=== PATIENT | male | born 2000 | race Caucasian/White ===

== ENCOUNTER 2021-08-19 12:11 | Inpatient (IN) ==
[2021-08-19] MEDS ORDERED: Ibuprofen 400 MG TABLET PO PRN (13:47)
[2021-08-19] MEDS ORDERED: *HR* LORazepam 1 MG TABLET PO PRN (13:47)
[2021-08-19] MEDS ORDERED: *HR* LORazepam 2 MG/ML VIAL IM PRN (13:47)
[2021-08-19] MEDS ORDERED: haloperidoL 5 MG TABLET PO PRN (13:47)
[2021-08-19] MEDS ORDERED: Haloperidol Lactate 5 MG/ML VIAL IM PRN (13:47)
[2021-08-19] MEDS ORDERED: Nicotine 2 MG GUM BC PRN (13:47)
[2021-08-19] MEDS ORDERED: Mag Hydrox/Al Hydrox/Simeth 30 ML UDC PO PRN (13:47)
[2021-08-19] MEDS ORDERED: MOM Conc 10 ML UD.LIQ PO PRN (13:47)
[2021-08-19 15:05] LABS: Influenza A PCR Negative (Negative); Influenza B PCR Negative (Negative); Resp. Syncytial Virus PCR Negative (Negative)
[2021-08-19 15:08] LABS: SARS-CoV-2 by PCR (In House) Negative (Negative)
[2021-08-19] MEDS ORDERED: OLANZapine 5 MG TAB.RAPDIS PO SCH (21:00)
[2021-08-19] MEDS: hydrOXYzine pamoate 25 MG CAPSULE PO PRN (21:07)
[2021-08-20] MEDS: Multivit/Ca/Min/Fe/FA 1 TAB TABLET PO SCH (11:05)
[2021-08-20] MEDS: Hydrocortisone 1% OINT 28 GM TUBE TP PRN (13:24)
[2021-08-20] MEDS: Lurasidone 20 MG TABLET PO SCH (16:07)
[2021-08-20] MEDS: traZODone 50 MG TABLET PO PRN (22:07)
[2021-08-21] MEDS: hydrOXYzine pamoate 25 MG CAPSULE PO PRN ×2 (00:09→21:29)
[2021-08-21] MEDS: Multivit/Ca/Min/Fe/FA 1 TAB TABLET PO SCH (09:25)
[2021-08-21] MEDS: Lurasidone 20 MG TABLET PO SCH (17:36)
[2021-08-21] MEDS: traZODone 50 MG TABLET PO PRN (21:29)
[2021-08-21] MEDS: Hydrocortisone 1% OINT 28 GM TUBE TP PRN (21:29)
[2021-08-22] MEDS: Multivit/Ca/Min/Fe/FA 1 TAB TABLET PO SCH (08:41)
[2021-08-22] MEDS: Melatonin 3 MG TABLET PO PRN (21:03)
[2021-08-22] MEDS: hydrOXYzine pamoate 25 MG CAPSULE PO PRN (21:03)
[2021-08-22] MEDS: Divalproex (24 HR) 500 MG TABLET PO SCH ×2 (21:04)
[2021-08-23] MEDS: Multivit/Ca/Min/Fe/FA 1 TAB TABLET PO SCH (09:02)
[2021-08-23] MEDS: Divalproex (24 HR) 500 MG TABLET PO SCH ×2 (22:08)
[2021-08-23] MEDS: hydrOXYzine pamoate 25 MG CAPSULE PO PRN (22:10)
[2021-08-23] MEDS: Melatonin 3 MG TABLET PO PRN (22:11)
[2021-08-24 08:34] LABS: Basophils # 0.1 K/mcL (0.0-0.2); Basophils % 1.2 %; Eosinophils # 0.4 K/mcL (0.0-0.6); Eosinophils % 5.8 %; Hematocrit 47.6 % (37.5-50.1); Hemoglobin 15.8 g/dL (12.9-16.9); Immature Granulocytes % 0.3 % (0-4); Lymphocytes # 2.3 K/mcL (0.6-4.6); Lymphocytes % 30.8 %; Mean Corpuscular HGB Conc 33.2 g/dL (31.6-35.5); Mean Corpuscular Hemoglobin 30.3 pg (28.0-33.3); Mean Corpuscular Volume 91.2 fL (83.0-100.0); Mean Platelet Volume 11.6 fL (9.4-12.4); Monocytes # 0.6 K/mcL (0.0-1.3); Monocytes % 8.3 %; Platelet Count 235 K/mcL (140-400); Red Blood Count 5.22 M/mcL (4.19-5.50); Red Cell Distribution Width 13.2 % (11.5-14.5); Segmented Neutrophils % 53.6 %; White Blood Count 7.4 K/mcL (4.3-11.1)
[2021-08-24] MEDS: Multivit/Ca/Min/Fe/FA 1 TAB TABLET PO SCH (08:48)
[2021-08-24 08:54] LABS: Bilirubin,Urine Negative (Negative); Blood,Urine Negative (Negative); Clarity,Urine Clear (Clear); Color,Urine Colorless (Yellow); Glucose,Urine (UA) Normal (Normal); Ketones,Urine Negative (Negative); Leukocyte Esterase,Urine Negative (Negative); Nitrite,Urine Negative (Negative); Protein,Urine Negative (Neg-Trace); Specific Gravity,Urine 1.015 (1.010-1.025); Urobilinogen,Urine Normal (Normal)
[2021-08-24 09:10] VITALS: BP 131/73; PULSE 53; TEMP 97.6; O2SAT 100
[2021-08-24 11:06] LABS: Alanine Aminotransferase 15 Units/L (7-52); Albumin 4.3 g/dL (3.5-5.7); Albumin/Globulin Ratio 1.7 (1.1-2.2); Alkaline Phosphatase 64 Units/L (34-104); Aspartate Amino Transferase 9 Units/L (13-39); BUN/Creatinine Ratio 18 (6-26); Bilirubin,Total 0.5 mg/dL (0.3-1.0); Blood Urea Nitrogen 14 mg/dL (6-20); Calcium 9.3 mg/dL (8.6-10.3); Carbon Dioxide 31 mEq/L (23-29); Chloride 101 mEq/L (98-107); Globulin 2.5 g/dL (2.4-3.5); Glucose 76 mg/dL (70-105); Osmolality,Calculated 283 (280-300); Potassium 4.1 mEq/L (3.5-5.1); Sodium 137 mEq/L (136-145); Total Protein 6.8 g/dL (6.4-8.9); eGFR For African Americans > 60 (> 60); eGFR For Non-African Americans > 60 (> 60)
[2021-08-24 11:19] LABS: Thyroid Stimulating Hormone 3.986 mcIU/mL (0.340-5.600)
[2021-08-24 15:04] LABS: Valproate 100 mcg/mL (50-100)
== END 2021-08-24 16:45 | disposition home or self-care (01) | DRG 753 ==
LOC: EMEROOARM 12:11 → 1ANU 15:45 → SUATTDRO 15:45 → 1ANU 18:51
PROVIDERS: ADMIT Psychiatry & Neurology Psychiatry; ATTEND Psychiatry & Neurology Forensic Psychiatry

== ENCOUNTER 2021-09-08 04:09 | Inpatient (IN) ==
[2021-09-08 06:02] LABS: Bilirubin,Urine Negative (Negative); Blood,Urine Negative (Negative); Clarity,Urine Clear (Clear); Color,Urine Yellow (Yellow); Glucose,Urine (UA) Normal (Normal); Ketones,Urine 20 mg/dL (Negative); Leukocyte Esterase,Urine Negative (Negative); Nitrite,Urine Negative (Negative); Protein,Urine Trace mg/dL (Neg-Trace)
[2021-09-08 07:02] LABS: Amphetamine Screen,Urine Negative ng/mL (Cutoff=1000); Barbiturate Screen,Urine Negative ng/mL (Cutoff=200)
[2021-09-08 07:04] LABS: Benzodiazepines Screen,Urine Negative ng/mL (Cutoff=300); Cannabinoid Screen,Urine Negative ng/mL (Cutoff = 50); Cocaine Screen,Urine Negative ng/mL (Cutoff= 300); Opiate Screen,Urine Negative ng/mL (Cutoff=300); Phencyclidine Screen,Urine Negative ng/mL (Cutoff=25)
[2021-09-08 13:49] LABS: Influenza A PCR Negative (Negative); Influenza B PCR Negative (Negative); Resp. Syncytial Virus PCR Negative (Negative)
[2021-09-08 14:20] LABS: SARS-CoV-2 by PCR (In House) Negative (Negative)
[2021-09-08] MEDS ORDERED: MOM Conc 10 ML UD.LIQ PO PRN (14:50)
[2021-09-08] MEDS ORDERED: Mag Hydrox/Al Hydrox/Simeth 30 ML UDC PO PRN (14:50)
[2021-09-08] MEDS ORDERED: *HR* LORazepam 1 MG TABLET PO PRN (14:50)
[2021-09-08] MEDS ORDERED: *HR* LORazepam 2 MG/ML VIAL IM PRN (14:50)
[2021-09-08] MEDS ORDERED: Acetaminophen 325 MG TABLET PO PRN (14:50)
[2021-09-08] MEDS ORDERED: chlorproMAZINE 25 MG TABLET PO PRN (15:01)
[2021-09-08] MEDS ORDERED: Divalproex (24 HR) 500 MG TABLET PO SCH (21:00)
[2021-09-08] MEDS: hydrOXYzine pamoate 25 MG CAPSULE PO PRN (21:58)
[2021-09-08] MEDS: traZODone 50 MG TABLET PO PRN ×2 (21:58→23:39)
[2021-09-09] MEDS ORDERED: Divalproex (24 HR) 500 MG TABLET PO SCH (21:00)
[2021-09-09] MEDS ORDERED: ARIPiprazole 5 MG TABLET PO SCH (21:00)
[2021-09-09] MEDS: Divalproex (24 HR) 250 MG TABLET PO SCH (21:29)
[2021-09-09] MEDS: traZODone 50 MG TABLET PO PRN (21:29)
[2021-09-10] MEDS: traZODone 50 MG TABLET PO PRN ×2 (01:00→21:40)
[2021-09-10] MEDS: Melatonin 3 MG TABLET PO SCH (21:40)
[2021-09-10] MEDS: ARIPiprazole 10 MG TABLET PO SCH (21:40)
[2021-09-10] MEDS: Divalproex (24 HR) 250 MG TABLET PO SCH (21:40)
[2021-09-11] MEDS: ARIPiprazole 10 MG TABLET PO SCH (21:17)
[2021-09-11] MEDS: Melatonin 3 MG TABLET PO SCH (21:17)
[2021-09-11] MEDS: Divalproex (24 HR) 250 MG TABLET PO SCH (21:17)
[2021-09-11] MEDS: traZODone 50 MG TABLET PO PRN (21:17)
[2021-09-12] MEDS: hydrOXYzine pamoate 25 MG CAPSULE PO PRN ×2 (01:59→16:24)
[2021-09-12] MEDS ORDERED: ARIPiprazole 400 MG SUSER.SYR IM SCH (10:15)
[2021-09-12] MEDS: ARIPiprazole 10 MG TABLET PO SCH (21:20)
[2021-09-12] MEDS: Divalproex (24 HR) 250 MG TABLET PO SCH (21:21)
[2021-09-12] MEDS: traZODone 50 MG TABLET PO PRN (21:21)
[2021-09-12] MEDS: Melatonin 3 MG TABLET PO SCH (21:21)
[2021-09-13] MEDS: hydrOXYzine pamoate 25 MG CAPSULE PO PRN ×2 (06:41→13:15)
[2021-09-13 09:32] VITALS: BP 112/71; PULSE 84; TEMP 97.2; O2SAT 99
[2021-09-13] MEDS ORDERED: Benzocaine 20% 12 APPL GEL..GRAM. TP PRN (11:59)
== END 2021-09-13 16:40 | disposition home or self-care (01) | DRG 753 ==
LOC: EMEROOARM 04:09 → SUATTDRO 14:42 → 1ANU 14:42
PROVIDERS: ADMIT Psychiatry & Neurology Psychiatry; ATTEND Psychiatry & Neurology Forensic Psychiatry

== ENCOUNTER 2021-09-21 07:06 | Inpatient (IN) ==
[2021-09-21 10:33] LABS: Influenza A PCR Negative (Negative); Influenza B PCR Negative (Negative); Resp. Syncytial Virus PCR Negative (Negative); SARS-CoV-2 by PCR (In House) Negative (Negative)
[2021-09-21] MEDS ORDERED: *HR* LORazepam 2 MG/ML VIAL IM PRN (11:27)
[2021-09-21] MEDS ORDERED: *HR* LORazepam 1 MG TABLET PO PRN (11:27)
[2021-09-21] MEDS ORDERED: Mag Hydrox/Al Hydrox/Simeth 30 ML UDC PO PRN (11:27)
[2021-09-21] MEDS ORDERED: Acetaminophen 325 MG TABLET PO PRN (11:27)
[2021-09-21] MEDS ORDERED: MOM Conc 10 ML UD.LIQ PO PRN (11:27)
[2021-09-21] MEDS: Divalproex (24 HR) 250 MG TABLET PO SCH (21:02)
[2021-09-21] MEDS: Melatonin 3 MG TABLET PO SCH (21:02)
[2021-09-21] MEDS: traZODone 50 MG TABLET PO PRN (21:03)
[2021-09-22] MEDS: hydrOXYzine pamoate 25 MG CAPSULE PO PRN ×2 (12:02→18:21)
[2021-09-22] MEDS: Melatonin 3 MG TABLET PO SCH (21:11)
[2021-09-22] MEDS: Divalproex (24 HR) 250 MG TABLET PO SCH (21:11)
[2021-09-22] MEDS: traZODone 50 MG TABLET PO PRN (23:03)
[2021-09-23] MEDS: hydrOXYzine pamoate 25 MG CAPSULE PO PRN ×3 (09:48→21:45)
[2021-09-23] MEDS: Cholecalciferol (D-3) 1,000 UNIT (25MCG) TABLET PO SCH (12:33)
[2021-09-23] MEDS: Nicotine 2 MG GUM BC PRN ×2 (19:21→20:34)
[2021-09-23] MEDS: Melatonin 3 MG TABLET PO SCH (21:42)
[2021-09-23] MEDS: Divalproex (24 HR) 250 MG TABLET PO SCH (21:43)
[2021-09-23] MEDS: traZODone 50 MG TABLET PO PRN (21:45)
[2021-09-24] MEDS: Cholecalciferol (D-3) 1,000 UNIT (25MCG) TABLET PO SCH (08:27)
[2021-09-24] MEDS: Nicotine 2 MG GUM BC PRN (08:40)
[2021-09-24] MEDS: Melatonin 3 MG TABLET PO SCH (20:36)
[2021-09-24] MEDS: Divalproex (24 HR) 250 MG TABLET PO SCH (20:36)
[2021-09-24] MEDS: traZODone 50 MG TABLET PO PRN (20:36)
[2021-09-25] MEDS: Cholecalciferol (D-3) 1,000 UNIT (25MCG) TABLET PO SCH (08:20)
[2021-09-25] MEDS: Nicotine 2 MG GUM BC PRN (09:51)
[2021-09-25] MEDS: hydrOXYzine pamoate 25 MG CAPSULE PO PRN (17:23)
[2021-09-25] MEDS: Divalproex (24 HR) 250 MG TABLET PO SCH (21:26)
[2021-09-25] MEDS: Melatonin 3 MG TABLET PO SCH (21:26)
[2021-09-25] MEDS: traZODone 50 MG TABLET PO PRN (21:26)
[2021-09-26] MEDS: Cholecalciferol (D-3) 1,000 UNIT (25MCG) TABLET PO SCH (08:53)
[2021-09-26 08:57] VITALS: BP 105/68; PULSE 81; TEMP 98.9; O2SAT 98
== END 2021-09-26 13:15 | disposition home or self-care (01) | DRG 753 ==
LOC: 1ANU 07:06 → EMEROOARM 07:06 → INTOOBSV 11:15 → OBSVTOIN 11:15 → 1ANU 11:40
PROVIDERS: ADMIT Psychiatry & Neurology Psychiatry; ATTEND Psychiatry & Neurology Psychiatry

== ENCOUNTER 2021-10-15 04:20 | Inpatient (IN) ==
[2021-10-15 05:22] LABS: Bilirubin,Urine Negative (Negative); Blood,Urine Negative (Negative); Clarity,Urine Clear (Clear); Color,Urine Light-Yellow (Yellow); Glucose,Urine (UA) Normal (Normal); Ketones,Urine Negative (Negative); Leukocyte Esterase,Urine Negative (Negative); Nitrite,Urine Negative (Negative); Protein,Urine Negative (Neg-Trace); Specific Gravity,Urine 1.018 (1.010-1.025); Urobilinogen,Urine Normal (Normal)
[2021-10-15 05:25] LABS: Basophils # 0.1 K/mcL (0.0-0.2); Basophils % 0.7 %; Eosinophils # 0.3 K/mcL (0.0-0.6); Eosinophils % 3.2 %; Hematocrit 44.4 % (37.5-50.1); Hemoglobin 15.3 g/dL (12.9-16.9); Immature Granulocytes % 0.2 % (0-4); Lymphocytes # 2.3 K/mcL (0.6-4.6); Lymphocytes % 26.6 %; Mean Corpuscular HGB Conc 34.5 g/dL (31.6-35.5); Mean Corpuscular Hemoglobin 30.7 pg (28.0-33.3); Mean Corpuscular Volume 89.2 fL (83.0-100.0); Mean Platelet Volume 11.3 fL (9.4-12.4); Monocytes # 0.9 K/mcL (0.0-1.3); Neutrophils # 5.1 K/mcL (1.6-8.9); Platelet Count 211 K/mcL (140-400); Red Blood Count 4.98 M/mcL (4.19-5.50); Red Cell Distribution Width 12.7 % (11.5-14.5); Segmented Neutrophils % 59.3 %; White Blood Count 8.6 K/mcL (4.3-11.1)
[2021-10-15 05:32] LABS: Amphetamine Screen,Urine Negative ng/mL (Cutoff=1000); Barbiturate Screen,Urine Negative ng/mL (Cutoff=200); Benzodiazepines Screen,Urine Negative ng/mL (Cutoff=200); Cannabinoid Screen,Urine Negative ng/mL (Cutoff = 50); Cocaine Screen,Urine Negative ng/mL (Cutoff= 300); Opiate Screen,Urine Negative ng/mL (Cutoff=300); Phencyclidine Screen,Urine Negative ng/mL (Cutoff=25)
[2021-10-15 05:45] LABS: Acetaminophen < 10 mcg/mL (10-20); Alanine Aminotransferase 11 Units/L (7-52); Albumin 4.8 g/dL (3.5-5.7); Albumin/Globulin Ratio 1.7 (1.1-2.2); Alkaline Phosphatase 71 Units/L (34-104); Aspartate Amino Transferase 8 Units/L (13-39); BUN/Creatinine Ratio 18 (6-26); Bilirubin,Direct 0.1 mg/dL (0.0-0.2); Bilirubin,Indirect 0.4 mg/dL (0.0-1.0); Bilirubin,Total 0.5 mg/dL (0.3-1.0); Blood Urea Nitrogen 15 mg/dL (6-20); Calcium 9.7 mg/dL (8.6-10.3); Carbon Dioxide 30 mEq/L (23-29); Chloride 100 mEq/L (98-107); Ethanol < 10 mg/dL (Less than 10); Globulin 2.8 g/dL (2.4-3.5); Glucose 92 mg/dL (70-105); Osmolality,Calculated 286 (280-300); Potassium 3.5 mEq/L (3.5-5.1); Salicylate < 2.5 mg/dL (15.0-30.0); Sodium 138 mEq/L (136-145); Total Protein 7.6 g/dL (6.4-8.9)
[2021-10-15 05:59] LABS: Thyroid Stimulating Hormone 10.787 mcIU/mL (0.340-5.600)
[2021-10-15 09:35] LABS: Influenza A PCR Negative (Negative); Influenza B PCR Negative (Negative); Resp. Syncytial Virus PCR Negative (Negative)
[2021-10-15 09:36] LABS: SARS-CoV-2 by PCR (In House) Negative (Negative)
[2021-10-15] MEDS ORDERED: MOM Conc 10 ML UD.LIQ PO PRN (10:01)
[2021-10-15] MEDS ORDERED: Mag Hydrox/Al Hydrox/Simeth 30 ML UDC PO PRN (10:01)
[2021-10-15] MEDS ORDERED: Acetaminophen 325 MG TABLET PO PRN (10:01)
[2021-10-15] MEDS ORDERED: QUEtiapine Fumarate 25 MG TABLET PO PRN (10:01)
[2021-10-15] MEDS ORDERED: *HR* LORazepam 2 MG/ML VIAL IM PRN (10:01)
[2021-10-15] MEDS ORDERED: Nicotine 2 MG GUM BC PRN (10:01)
[2021-10-15] MEDS ORDERED: *HR* LORazepam 1 MG TABLET PO PRN (10:01)
[2021-10-15] MEDS: Cholecalciferol (D-3) 1,000 UNIT (25MCG) TABLET PO SCH (12:53)
[2021-10-15] MEDS: hydrOXYzine pamoate 25 MG CAPSULE PO PRN ×2 (12:55→17:18)
[2021-10-15] MEDS: Divalproex (24 HR) 250 MG TABLET PO SCH (20:25)
[2021-10-15] MEDS: traZODone 50 MG TABLET PO SCH (20:25)
[2021-10-15] MEDS: Melatonin 3 MG TABLET PO SCH (20:25)
[2021-10-16] MEDS: Cholecalciferol (D-3) 1,000 UNIT (25MCG) TABLET PO SCH (09:26)
[2021-10-16] MEDS: hydrOXYzine pamoate 25 MG CAPSULE PO PRN ×3 (10:35→20:47)
[2021-10-16] MEDS: traZODone 50 MG TABLET PO SCH (20:44)
[2021-10-16] MEDS: Melatonin 3 MG TABLET PO SCH (20:44)
[2021-10-16] MEDS: Divalproex (24 HR) 250 MG TABLET PO SCH (20:45)
[2021-10-16] MEDS ORDERED: OLANZapine 5 MG TAB.RAPDIS PO SCH (21:00)
[2021-10-16] MEDS ORDERED: Ziprasidone 20 MG CAPSULE PO PRN ×2 (22:10→22:44)
[2021-10-17 10:01] VITALS: BP 115/61; PULSE 46; TEMP 96.3; O2SAT 100
== END 2021-10-17 10:02 | disposition psychiatric hospital, planned readmission (93) | DRG 753 ==
LOC: EMEROOARM 04:20 → 1ANU 09:58
PROVIDERS: ADMIT Psychiatry & Neurology Psychiatry; ATTEND Psychiatry & Neurology Psychiatry

== ENCOUNTER 2021-10-17 09:51 | Observation (INO) ==
[2021-10-17] MEDS ORDERED: Melatonin 3 MG TABLET PO PRN (10:31)
[2021-10-17] MEDS ORDERED: Ondansetron ODT 4 MG TAB.RAPDIS SL PRN (10:31)
[2021-10-17] MEDS ORDERED: Naloxone 0.4 MG/ML INJ IVP PRN (10:31)
[2021-10-17] MEDS ORDERED: Iopamidol - 370 500 ML MLS IVP ONE (10:33)
[2021-10-17] MEDS ORDERED: Morphine Sulfate 2 MG/ML SYRINGE IVP ONE (12:20)
[2021-10-17 12:39] LABS: Hematocrit 45.4 % (37.5-50.1); Hemoglobin 15.2 g/dL (12.9-16.9); Mean Corpuscular HGB Conc 33.5 g/dL (31.6-35.5); Mean Corpuscular Hemoglobin 30.5 pg (28.0-33.3); Mean Platelet Volume 11.3 fL (9.4-12.4); Platelet Count 190 K/mcL (140-400); Red Blood Count 4.99 M/mcL (4.19-5.50); Red Cell Distribution Width 12.9 % (11.5-14.5); White Blood Count 11.3 K/mcL (4.3-11.1)
[2021-10-17] MEDS ORDERED: hydrOXYzine pamoate 25 MG CAPSULE PO PRN (13:47)
[2021-10-17 14:14] LABS: Troponin I < 0.03 ng/mL (< 0.04)
[2021-10-17 14:21] LABS: BUN/Creatinine Ratio 17 (6-26); Blood Urea Nitrogen 14 mg/dL (6-20); Calcium 9.2 mg/dL (8.6-10.3); Carbon Dioxide 21 mEq/L (23-29); Chloride 104 mEq/L (98-107); Glucose 89 mg/dL (70-105); Magnesium 2.1 mg/dL (1.6-2.6); Osmolality,Calculated 284 (280-300); Potassium 4.4 mEq/L (3.5-5.1); Sodium 137 mEq/L (136-145)
[2021-10-17] MEDS ORDERED: *HR* LORazepam 2 MG/ML VIAL IVP PRN (16:38)
[2021-10-17] MEDS: Sennosides/Docusate Sodium TABLET PO PRN (18:31)
[2021-10-17] MEDS ORDERED: Divalproex (24 HR) 250 MG TABLET PO SCH (21:00)
[2021-10-17] MEDS ORDERED: Melatonin 3 MG TABLET PO SCH (21:00)
[2021-10-17] MEDS ORDERED: OLANZapine 5 MG TAB.RAPDIS PO SCH (21:00)
[2021-10-18] MEDS ORDERED: *HR* Enoxaparin 40 MG/0.4 ML SYRINGE SQ SCH (06:00)
[2021-10-18 12:12] VITALS: BP 129/66; PULSE 74; TEMP 98.1; O2SAT 96
[2021-10-18] MEDS: Sennosides/Docusate Sodium TABLET PO PRN (13:34)
== END 2021-10-18 15:27 | disposition other institution (70) ==
LOC: 3BNU → SUATTDRO 10:19
PROVIDERS: ADMIT Student in an Organized Health Care Education/Training Program; ATTEND Internal Medicine

== ENCOUNTER 2021-10-18 15:33 | Inpatient (IN) ==
[2021-10-18] MEDS ORDERED: MOM Conc 10 ML UD.LIQ PO PRN (15:42)
[2021-10-18] MEDS ORDERED: *HR* LORazepam 2 MG/ML VIAL IM PRN (15:42)
[2021-10-18] MEDS ORDERED: Mag Hydrox/Al Hydrox/Simeth 30 ML UDC PO PRN (15:42)
[2021-10-18] MEDS ORDERED: *HR* LORazepam 1 MG TABLET PO PRN (15:42)
[2021-10-18] MEDS ORDERED: OLANZapine 10 MG VIAL IM PRN (15:45)
[2021-10-18] MEDS: Nicotine 2 MG GUM BC PRN (18:11)
[2021-10-18] MEDS: hydrOXYzine pamoate 25 MG CAPSULE PO PRN (18:11)
[2021-10-18] MEDS: Ibuprofen 400 MG TABLET PO PRN (20:34)
[2021-10-18] MEDS: OLANZapine 10 MG TAB.RAPDIS PO SCH (20:34)
[2021-10-18] MEDS: Melatonin 3 MG TABLET PO SCH (20:34)
[2021-10-19] MEDS: Cholecalciferol (D-3) 1,000 UNIT (25MCG) TABLET PO SCH (09:51)
[2021-10-19] MEDS: Nicotine 21 MG PATCH.TD24 TD SCH (09:53)
[2021-10-19] MEDS: Nicotine 2 MG GUM BC PRN (09:54)
[2021-10-19] MEDS: Ibuprofen 400 MG TABLET PO PRN (18:12)
[2021-10-19] MEDS: hydrOXYzine pamoate 25 MG CAPSULE PO PRN ×2 (18:12→23:17)
[2021-10-19] MEDS: Melatonin 3 MG TABLET PO SCH (20:04)
[2021-10-19] MEDS: OLANZapine 10 MG TAB.RAPDIS PO SCH (20:04)
[2021-10-19] MEDS ORDERED: Divalproex (24 HR) 250 MG TABLET PO SCH (21:00)
[2021-10-20] MEDS: Cholecalciferol (D-3) 1,000 UNIT (25MCG) TABLET PO SCH (09:41)
[2021-10-20] MEDS: Nicotine 21 MG PATCH.TD24 TD SCH (09:42)
[2021-10-20] MEDS: hydrOXYzine pamoate 25 MG CAPSULE PO PRN ×2 (10:01→17:19)
[2021-10-20] MEDS: Acetaminophen 325 MG TABLET PO PRN (19:24)
[2021-10-20] MEDS: Melatonin 3 MG TABLET PO SCH (20:07)
[2021-10-20] MEDS: OLANZapine 10 MG TAB.RAPDIS PO SCH (20:08)
[2021-10-20] MEDS: Divalproex (24 HR) 500 MG TABLET PO SCH (20:08)
[2021-10-21] MEDS: Cholecalciferol (D-3) 1,000 UNIT (25MCG) TABLET PO SCH (09:19)
[2021-10-21] MEDS: Nicotine 21 MG PATCH.TD24 TD SCH (09:20)
[2021-10-21] MEDS: hydrOXYzine pamoate 25 MG CAPSULE PO PRN ×2 (11:22→21:03)
[2021-10-21] MEDS: Baclofen 10 MG TABLET PO SCH ×2 (16:54→21:03)
[2021-10-21] MEDS: OLANZapine 10 MG TAB.RAPDIS PO SCH (21:02)
[2021-10-21] MEDS: Divalproex (24 HR) 500 MG TABLET PO SCH (21:04)
[2021-10-21] MEDS: Melatonin 3 MG TABLET PO SCH (21:04)
[2021-10-22] MEDS: Cholecalciferol (D-3) 1,000 UNIT (25MCG) TABLET PO SCH (09:08)
[2021-10-22] MEDS: Baclofen 10 MG TABLET PO SCH ×3 (09:09→20:33)
[2021-10-22] MEDS: Nicotine 21 MG PATCH.TD24 TD SCH (09:09)
[2021-10-22] MEDS: hydrOXYzine pamoate 25 MG CAPSULE PO PRN ×2 (10:23→17:39)
[2021-10-22] MEDS: Melatonin 3 MG TABLET PO SCH (20:33)
[2021-10-22] MEDS: OLANZapine 10 MG TAB.RAPDIS PO SCH (20:34)
[2021-10-22] MEDS: Divalproex (24 HR) 500 MG TABLET PO SCH (20:35)
[2021-10-23] MEDS: Levothyroxine 25 MCG TABLET PO SCH (07:08)
[2021-10-23] MEDS: Nicotine 21 MG PATCH.TD24 TD SCH (09:00)
[2021-10-23] MEDS: Baclofen 10 MG TABLET PO SCH ×3 (09:00→20:46)
[2021-10-23] MEDS: Cholecalciferol (D-3) 1,000 UNIT (25MCG) TABLET PO SCH (09:00)
[2021-10-23] MEDS ORDERED: hydrOXYzine pamoate 25 MG CAPSULE PO ONE (19:00)
[2021-10-23] MEDS: Divalproex (24 HR) 500 MG TABLET PO SCH (20:43)
[2021-10-23] MEDS: hydrOXYzine pamoate 25 MG CAPSULE PO SCH (20:44)
[2021-10-23] MEDS: Melatonin 3 MG TABLET PO SCH (20:44)
[2021-10-23] MEDS: OLANZapine 10 MG TAB.RAPDIS PO SCH (20:45)
[2021-10-24] MEDS: hydrOXYzine pamoate 25 MG CAPSULE PO SCH ×2 (09:15→21:41)
[2021-10-24] MEDS: Baclofen 10 MG TABLET PO SCH ×2 (09:16→21:40)
[2021-10-24] MEDS: Cholecalciferol (D-3) 1,000 UNIT (25MCG) TABLET PO SCH (09:16)
[2021-10-24] MEDS: Levothyroxine 25 MCG TABLET PO SCH (09:17)
[2021-10-24] MEDS: Nicotine 21 MG PATCH.TD24 TD SCH (09:18)
[2021-10-24] MEDS ORDERED: Moderna Covid-19 Vaccine 100MCG/0.5mL IM ONE (12:07)
[2021-10-24] MEDS ORDERED: hydrOXYzine pamoate 25 MG CAPSULE PO ONE (13:59)
[2021-10-24] MEDS: Melatonin 3 MG TABLET PO SCH (21:40)
[2021-10-24] MEDS: Divalproex (24 HR) 500 MG TABLET PO SCH (21:40)
[2021-10-24] MEDS: OLANZapine 10 MG TAB.RAPDIS PO SCH (21:41)
[2021-10-24] MEDS: QUEtiapine Fumarate 25 MG TABLET PO PRN (22:58)
[2021-10-25] MEDS: Nicotine 21 MG PATCH.TD24 TD SCH (11:08)
[2021-10-25] MEDS: hydrOXYzine pamoate 25 MG CAPSULE PO SCH ×2 (11:08→21:10)
[2021-10-25] MEDS: Baclofen 10 MG TABLET PO SCH ×2 (11:09→21:12)
[2021-10-25] MEDS: Levothyroxine 25 MCG TABLET PO SCH (11:09)
[2021-10-25] MEDS: Cholecalciferol (D-3) 1,000 UNIT (25MCG) TABLET PO SCH (11:09)
[2021-10-25] MEDS ORDERED: hydrOXYzine pamoate 25 MG CAPSULE PO PRN (16:02)
[2021-10-25] MEDS: OLANZapine 10 MG TAB.RAPDIS PO SCH (21:08)
[2021-10-25] MEDS: Divalproex (24 HR) 500 MG TABLET PO SCH (21:09)
[2021-10-25] MEDS: Melatonin 3 MG TABLET PO SCH (21:12)
[2021-10-25] MEDS: QUEtiapine Fumarate 25 MG TABLET PO PRN (21:15)
[2021-10-26] MEDS: Levothyroxine 25 MCG TABLET PO SCH (07:05)
[2021-10-26] MEDS: hydrOXYzine pamoate 25 MG CAPSULE PO SCH ×2 (08:44→20:53)
[2021-10-26] MEDS: Cholecalciferol (D-3) 1,000 UNIT (25MCG) TABLET PO SCH (08:44)
[2021-10-26] MEDS: Baclofen 10 MG TABLET PO SCH ×2 (08:45→20:53)
[2021-10-26] MEDS: Nicotine 21 MG PATCH.TD24 TD SCH (08:45)
[2021-10-26] MEDS: Divalproex (24 HR) 500 MG TABLET PO SCH (20:51)
[2021-10-26] MEDS: OLANZapine 10 MG TAB.RAPDIS PO SCH (20:52)
[2021-10-26] MEDS: Melatonin 3 MG TABLET PO SCH (20:53)
[2021-10-27] MEDS: Levothyroxine 25 MCG TABLET PO SCH (07:02)
[2021-10-27] MEDS: Cholecalciferol (D-3) 1,000 UNIT (25MCG) TABLET PO SCH (09:07)
[2021-10-27] MEDS: Baclofen 10 MG TABLET PO SCH ×2 (09:07→20:05)
[2021-10-27] MEDS: hydrOXYzine pamoate 25 MG CAPSULE PO SCH ×2 (09:07→20:05)
[2021-10-27] MEDS: Nicotine 21 MG PATCH.TD24 TD SCH (09:08)
[2021-10-27] MEDS: OLANZapine 10 MG TAB.RAPDIS PO SCH (20:03)
[2021-10-27] MEDS: Melatonin 3 MG TABLET PO SCH (20:04)
[2021-10-27] MEDS: Divalproex (24 HR) 500 MG TABLET PO SCH (20:04)
[2021-10-28] MEDS: Levothyroxine 25 MCG TABLET PO SCH (08:53)
[2021-10-28] MEDS: Baclofen 10 MG TABLET PO SCH ×2 (08:54→20:28)
[2021-10-28] MEDS: hydrOXYzine pamoate 25 MG CAPSULE PO SCH ×2 (08:54→20:28)
[2021-10-28] MEDS: Cholecalciferol (D-3) 1,000 UNIT (25MCG) TABLET PO SCH (08:54)
[2021-10-28] MEDS: Nicotine 21 MG PATCH.TD24 TD SCH (08:56)
[2021-10-28] MEDS: BuPROPion XL (24 HR) 150 MG TABLET PO SCH (11:04)
[2021-10-28] MEDS: Divalproex (24 HR) 500 MG TABLET PO SCH (20:28)
[2021-10-28] MEDS: Melatonin 3 MG TABLET PO SCH (20:28)
[2021-10-28] MEDS: OLANZapine 10 MG TAB.RAPDIS PO SCH (20:31)
[2021-10-29] MEDS: Levothyroxine 25 MCG TABLET PO SCH (06:14)
[2021-10-29] MEDS: Baclofen 10 MG TABLET PO SCH ×2 (09:18→20:48)
[2021-10-29] MEDS: BuPROPion XL (24 HR) 150 MG TABLET PO SCH (09:18)
[2021-10-29] MEDS: hydrOXYzine pamoate 25 MG CAPSULE PO SCH ×2 (09:18→20:47)
[2021-10-29] MEDS: Cholecalciferol (D-3) 1,000 UNIT (25MCG) TABLET PO SCH (09:18)
[2021-10-29] MEDS: Nicotine 21 MG PATCH.TD24 TD SCH (09:19)
[2021-10-29] MEDS: Acetaminophen 325 MG TABLET PO PRN (20:09)
[2021-10-29] MEDS: Melatonin 3 MG TABLET PO SCH (20:48)
[2021-10-29] MEDS: OLANZapine 10 MG TAB.RAPDIS PO SCH (20:48)
[2021-10-29] MEDS: Divalproex (24 HR) 500 MG TABLET PO SCH (20:48)
[2021-10-30] MEDS: Levothyroxine 25 MCG TABLET PO SCH (06:38)
[2021-10-30] MEDS: Baclofen 10 MG TABLET PO SCH ×2 (09:00→21:05)
[2021-10-30] MEDS: hydrOXYzine pamoate 25 MG CAPSULE PO SCH ×2 (09:01→21:05)
[2021-10-30] MEDS: BuPROPion XL (24 HR) 150 MG TABLET PO SCH (09:01)
[2021-10-30] MEDS: Cholecalciferol (D-3) 1,000 UNIT (25MCG) TABLET PO SCH (09:01)
[2021-10-30] MEDS: Nicotine 21 MG PATCH.TD24 TD SCH (09:02)
[2021-10-30] MEDS: Divalproex (24 HR) 500 MG TABLET PO SCH (21:05)
[2021-10-30] MEDS: OLANZapine 10 MG TAB.RAPDIS PO SCH (21:05)
[2021-10-30] MEDS: Melatonin 3 MG TABLET PO SCH (21:05)
[2021-10-31] MEDS: Levothyroxine 25 MCG TABLET PO SCH (06:14)
[2021-10-31] MEDS: BuPROPion XL (24 HR) 150 MG TABLET PO SCH (09:22)
[2021-10-31] MEDS: Nicotine 21 MG PATCH.TD24 TD SCH (09:22)
[2021-10-31] MEDS: hydrOXYzine pamoate 25 MG CAPSULE PO SCH (09:23)
[2021-10-31] MEDS: Cholecalciferol (D-3) 1,000 UNIT (25MCG) TABLET PO SCH (09:23)
[2021-10-31] MEDS: Baclofen 10 MG TABLET PO SCH (09:23)
[2021-10-31 10:48] VITALS: BP 118/68; PULSE 76; TEMP 97.8; O2SAT 98
[2021-10-31 13:03] LABS: Influenza A PCR Negative (Negative); Influenza B PCR Negative (Negative); Resp. Syncytial Virus PCR Negative (Negative); SARS-CoV-2 by PCR (In House) Negative (Negative)
== END 2021-10-31 15:20 | disposition home or self-care (01) | DRG 753 ==
LOC: 1ANU 15:33
PROVIDERS: ADMIT Psychiatry & Neurology Forensic Psychiatry; ATTEND Psychiatry & Neurology Forensic Psychiatry